=== PATIENT | female | born 1995 | race Two or more races ===

== ENCOUNTER 2019-06-09 10:49 | Emergency (ER) | payer OTHER ==
[~2019-06-09] VITALS: Ht 154.9 cm; Wt 60.9 kg
[2019-06-09] MEDS ORDERED: PHEN15CA PO (10:58)
[2019-06-09 11:19] VITALS: BP 108/68
== END 2019-06-09 12:03 | disposition home or self-care (01) ==
LOC: EMS 10:53
DX: H01.001 Unspecified blepharitis right upper eyelid (principal)